=== PATIENT | male | born 1945 | race African-American/Black ===

== ENCOUNTER 2016-11-04 22:42 | Observation (INO) | payer OTHER, MEDICARE ==
[2016-11-05] MEDS ORDERED: ACETAMINOPHEN 325 MG TABLET PO ONE (00:40)
--- NOTE | 2016-11-05 00:40 | ER Document Report ---
ED General <TAMARA ALDANA - Last Filed: 11/05/16 04:25> - General Time seen by provider: 00:35 Mode of Arrival: Ambulatory Information source: Patient TRAVEL OUTSIDE OF THE [place] IN LAST 30 DAYS: No - HPI Onset: Other - see HPI Associated symptoms: Chills, Fever, Headache, Other - dizzy <KEVIN OWEN - Last Filed: 11/11/16 22:27> - General Chief Complaint: High Blood Pressure Stated Complaint: BLOOD PRESSURE ISSUE Notes: Patient is a 71 year old male presenting to the emergency department complaining of high blood pressure. Patient was seen on 10/09/16 for some left tunnel vision. 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 Patient was admitted to the hospital and then transferred to [facility] on 10/11. Patient was found to have hypertension, diabetes mellitus , and hyperlipidemia along with his carotid artery blockage. Patient had an endarterectomy on 11/03/16 at [facility]. Patient's blood pressure shot up to 230 systolic on 11/03/16 after surgery and patient was given medication to bring it down to 70/24. Patient was discharged from [facility] with valsartan for his blood pressure and told to not take the hydrochlorothiazide. Patient was discharged from [facility] earlier on 11/04/16. Patient states he took 2 hydrochlorothiazide to help bring his elevated blood pressure down tonight. Patient also complains of fever, headache, chills, and dizziness. Patient has not taken any medication for his fever. At time of exam patient's blood pressure is 180/75. Patient's PCP is Dr. Lima and Dr. Lima was the patient's admitting physician on 10/09. Patient has no known allergies. (KEVIN OWEN) - Related Data Allergies/Adverse Reactions: No Known Allergies Allergy (Verified 11/05/16 05:11) Home Medications: Current Home Medications Aspirin [Aspirin 81 mg Chewable Tablet] 81 mg PO DAILY 11/05/16 [History] Brimonidine Tartrate/Timolol [Combigan 0.2%-0.5% Eye Drops] 1 drop BTH_EYE BID 11/05/16 [History] Canagliflozin [Invokana] 100 mg PO DAILY 11/05/16 [History] Clopidogrel Bisulfate [Plavix 75 mg Tablet] 75 mg PO DAILY 11/05/16 [History] Glimepiride [Amaryl] 2 mg PO DAILY 11/05/16 [History] Glucosamine/D3/Boswellia Fariha [Osteo Bi-Flex Tablet] 2 tab PO DAILY 11/05/16 [ History] Multivitamin [Daily Multiple Vitamin] 1 tab PO DAILY 11/05/16 [History] Simvastatin 20 mg PO DAILY 11/05/16 [History] Sitagliptin Phos/Metformin HCl [Janumet 50-500 mg Tablet] 1 tab PO DAILY [History] Travoprost (Benzalkonium) [Travatan 0.004% Eye Drop] 1 drop RT_EYE DAILY [History] Valsartan 160 mg PO DAILY 11/05/16 [History] Past Medical History - General Information source: Patient - Social History Smoking Status: Never Smoker Cigarette use (# per day): No Chew tobacco use (# tins/day): No Frequency of alcohol use: None Drug Abuse: None Family History: None - Past Medical History Cardiac Medical History: Reports: Hx Hypercholesterolemia, Hx Hypertension Endocrine Medical History: Reports: Hx Diabetes Mellitus Type 2 GI Medical History: Reports: Hx Gastroesophageal Reflux Disease Musculoskeltal Medical History: Reports Hx Arthritis Psychiatric Medical History: Reports: Hx Depression <KEVIN OWEN - Last Filed: 11/11/16 22:27> Review of Systems - Review of Systems Constitutional: See HPI, Chills, Fever EENT: No symptoms reported Cardiovascular: See HPI, Dizziness Respiratory: No symptoms reported Gastrointestinal: No symptoms reported Genitourinary: No symptoms reported Male Genitourinary: No symptoms reported Musculoskeletal: No symptoms reported Skin: No symptoms reported Hematologic/Lymphatic: No symptoms reported Neurological/Psychological: No symptoms reported -: Yes All other systems reviewed and negative <KEVIN OWEN - Last Filed: 11/11/16 22:27> Physical Exam - Vital signs Interpretation: Hypertensive, Tachycardic - General General appearance: Alert In distress: Mild - HEENT Head: Normocephalic, Atraumatic Eyes: Normal Pupils: PERRL Mucous membranes: Normal Neck: Other - left side of neck has some bandages consistent with recent surgery - Respiratory Respiratory status: No respiratory distress Chest status: Nontender Breath sounds: Normal Chest palpation: Normal - Cardiovascular Rhythm: Regular, Tachycardia Heart sounds: Normal auscultation - Abdominal Inspection: Obese Distension: No distension Bowel sounds: Normal Tenderness: Nontender Organomegaly: No organomegaly - Back Back: Normal, Nontender - Extremities General upper extremity: Normal inspection, Normal ROM, Normal strength General lower extremity: Normal inspection, Normal ROM, Normal strength. No: Edema - Neurological Neuro grossly intact: Yes Cognition: Normal Orientation: AAOx4 Sp Coma Scale Eye Opening: Spontaneous [place] Coma Scale Verbal: Oriented Sp Coma Scale Motor: Obeys Commands [place] Coma Scale Total: 15 Speech: Normal - Psychological Associated symptoms: Normal affect, Normal mood - Skin Skin Temperature: Hot Skin Moisture: Dry <KEVIN OWEN - Last Filed: 11/11/16 22:27> - Vital signs Vitals: Temp Pulse Resp BP Pulse Ox 100.6 F H 102 H 19 171/68 H 96 11/05/16 00:00 11/05/16 00:00 11/05/16 00:00 11/05/16 00:00 11/05/16 00:00 (TAMARA ALDNAA) Course - Laboratory Result Diagrams: 11/05/16 01:39 11/05/16 01:39 - Diagnostic Test Radiology reviewed: Image reviewed, Reports reviewed - Chest x-ray does not show any acute process - EKG Interpretation by Me EKG shows normal: Sinus rhythm, [place], Intervals. abnormal: QRS Complexes - Borderline R-wave progression in the anterior leads, ST-T Waves - Borderline T abnormalities in the inferior leads Rate: Normal - 89 Rhythm: NSR P Waves: LAE - Consults Dr. Lima Time consulted: 03:00 Consulted provider: other - Dr. Lima requests I call the patient's doctors in [place] and transfer him back to [facility]. Dr. Tai Time consulted: 04:15 Consulted provider: other - The hospitalist feels the patient does not warrant transfer to higher level of care and that they do not have beds. He recommends the patient have his fever workup and blood pressure controlled here locally. <TAMARA ALDANA - Last Filed: 11/05/16 04:25> - Laboratory Result Diagrams: 11/06/16 05:58 11/06/16 05:58 <KEVIN OWEN - Last Filed: 11/11/16 22:27> - Re-evaluation Re-evalutation: 11/05/16 03:15 The patient still feels warm at this time, however he states he does feel much better since getting the Tylenol. He has been napping. His blood pressure is now 135 systolic. The patient's chest x-ray is unremarkable, the urine is clean, the white blood cell count is not elevated. I informed the patient and the family that I suspect this will log turner to be a viral illness causing his problems at this time. (TAMARA ALDANA) - Vital Signs Vital signs: Temp Pulse Resp BP Pulse Ox 98.0 F 65 18 152/68 H 100 11/06/16 11:43 11/06/16 11:43 11/06/16 11:43 11/06/16 11:43 11/06/16 11:43 (TAMARA ALDANA) - Laboratory Laboratory results interpreted by me: 11/05/16 11/05/16 11/05/16 01:39 01:39 01:46 RBC 3.62 L Hgb 10.7 L Hct 32.0 L Lymphocytes % 12.6 L Glucose 137 H Creatine Kinase 367 H Urine Glucose (UA) >=500 H Urine Ketones 20 H - Consults Dr. Lima Reason for consultation: 11/05/16 04:23 Dr. Lima was called back and informed of the recommendations by the hospitalist at [facility]. He is agreeable to admitting the patient. He requested he go to telemetry admitted, and be started on antibiotics. (TAMARA ALDANA) Scribe Documentation - Scribe acting as scribe for :: Reyna Written by Scribe:: Kevin Owen (11/05/16 00:30) <KEVIN OWEN - Last Filed: 11/11/16 22:27>
[2016-11-05] MEDS ORDERED: NORMAL SALINE 1000 ML 1,000 ML IV ONE (00:41)
[2016-11-05 02:07] LABS: ALANINE AMINOTRANSFERASE 52 U/L (21-72); ALBUMIN 3.5 g/dL (3.5-5.0); ALKALINE PHOSPHATASE 66 U/L (38-126); ANION GAP 12 (5-19); ASPARTATE AMINO TRANSFERASE 54 U/L (17-59); BILIRUBIN,TOTAL 0.6 mg/dL (0.2-1.3); BLOOD UREA NITROGEN 13 mg/dL (7-20); CARBON DIOXIDE 27 mmol/L (22-30); CHLORIDE 104 mmol/L (98-107); CREATINE KINASE 367 U/L (55-170); CREATININE RESULT 0.97 mg/dL (0.52-1.25); GLUCOSE 137 mg/dL (75-110); MAGNESIUM 1.7 mg/dL (1.6-2.3); POTASSIUM 3.7 mmol/L (3.6-5.0); SODIUM 142.6 mmol/L (137-145); TOTAL PROTEIN 6.7 g/dL (6.3-8.2)
[2016-11-05 02:16] LABS: ABSOLUTE EOSINOPHILS # (AUTO) 0.1 10^3/uL (0.0-0.6); ABSOLUTE LYMPHOCYTES (AUTO) 1.3 10^3/uL (0.5-4.7); ABSOLUTE MONOCYTES (AUTO) 1.2 10^3/uL (0.1-1.4); ABSOLUTE NEUT (AUTO) 7.9 10^3/uL (1.7-8.2); BASOPHILS % (AUTO) 0.5 % (0-2); EOSINOPHILS % (AUTO) 0.9 % (0-6); HEMOGLOBIN 10.7 g/dL (13.5-17.0); HGB HCT DIFFERENCE 0.1; LYMPHOCYTES % (AUTO) 12.6 % (13-45); MEAN CORPUSCULAR HEMOGLOBIN 29.5 pg (27.0-33.4); MEAN CORPUSCULAR HGB CONC 33.3 g/dL (32.0-36.0); MEAN CORPUSCULAR VOLUME 89 fl (80-97); MONOCYTES % (AUTO) 11.2 % (3-13); RED BLOOD COUNT 3.62 10^6/uL (4.35-5.55); RED CELL DISTRIBUTION WIDTH 13.1 % (11.5-14.0); SEGMENTED NEUTROPHILS % (AUTO) 74.8 % (42-78); WHITE BLOOD COUNT 10.5 10^3/uL (4.0-10.5)
[2016-11-05 02:18] LABS: APPEARANCE,URINE CLEAR; BILIRUBIN,URINE NEGATIVE (NEGATIVE); GLUCOSE, URINE >=500 mg/dL (NEGATIVE); KETONES,URINE 20 mg/dL (NEGATIVE); LEUKOCYTE ESTERASE,URINE NEGATIVE (NEGATIVE); NITRITE,URINE NEGATIVE (NEGATIVE); PROTEIN,URINE NEGATIVE (NEGATIVE); URINE SPECIFIC GRAVITY 1.013; UROBILINOGEN,URINE NEGATIVE mg/dL (<2.0)
[2016-11-05 02:21] LABS: CREATINE KINASE MB < 0.22 ng/mL (<4.55); TROPONIN I < 0.012 ng/mL
[2016-11-05] MEDS ORDERED: CEFTRIAXONE 1 GM/D5W RTU 50 ML IV ONE (04:24)
[2016-11-05] MEDS ORDERED: ACETAMINOPHEN 325 MG TABLET PO PRN (06:54)
[2016-11-05] MEDS ORDERED: NORMAL SALINE 1000 ML 1,000 ML IV PRN (06:54)
[2016-11-05] MEDS ORDERED: DEXTROSE 40% GEL 15 GM TUBE PO PRN ×2 (06:57)
[2016-11-05] MEDS ORDERED: GLUCAGON,HUMAN RECOMB 1 MG INJ IM PRN (06:57)
[2016-11-05] MEDS ORDERED: INSULIN LISPRO 100 UNIT/ML 3 ML VIAL SUBCUT PRN (06:57)
[2016-11-05] MEDS ORDERED: DEXTROSE 50%-WATER 25 GM/50 ML DISP.SYRIN IV PRN ×2 (06:57)
--- NOTE | 2016-11-05 07:56 | EKG REPORT ---
SEVERITY:- ABNORMAL ECG - SINUS RHYTHM PROBABLE LEFT ATRIAL ABNORMALITY BORDERLINE R WAVE PROGRESSION, ANTERIOR LEADS BORDERLINE T ABNORMALITIES, INFERIOR LEADS : Confirmed by: Vandana Shah 05-Nov-2016 07:56:13
--- NOTE | 2016-11-05 08:06 | PDOC H&P ---
History of Present Illness Admission Date/PCP: 11/05/16 06:46 HOSSEIN WIGGINS MD Patient complains of: Fever and cough and high blood pressure History of Present Illness: KAY OROURKE is a 71 year old male This 71-year-old male recently admitted on the [facility] for the left and carotid endarterectomy on the 130 17 patient was discharged in a 24- hour patient's came today with a complaint of fever headache complained of for cough congestion last 24 hours his blood pressure was elevated to 180 range according to the patient after the surgery patient's (go up to the 200 range and the patient was given to the some medications to bring it down patient was discharged home from that patient's in the initial workup is negative for any acute stroke and negative workup for any acute infections except possible viral infections. When I saw the patient on the floor patient is doing better denied any headache denied any tingling numbness denied any chest pain no shortness of the breath patient's denied any chills any fever at this moment. Patient's complaining some cough and congestions. Past Medical History Cardiac Medical History: Reports: Hyperlipidema, Hypertension Neurological Medical History: Reports: Ischemic CVA Endocrine Medical History: Reports: Diabetes Mellitus Type 2 GI Medical History: Reports: Gastroesophageal Reflux Disease Musculoskeltal Medical History: Reports: Arthritis Psychiatric Medical History: Reports: Depression Past Surgical History Past Surgical History: Reports: Carotid Endarterectomy Social History Smoking Status: Former Smoker Last Time Smoked: 25 years ago Frequency of Alcohol Use: Social Hx Recreational Drug Use: No Hx Prescription Drug Abuse: No - Advance Directive Resuscitation Status: Full Code Family History Family History: None Parental Family History Reviewed: Yes Children Family History Reviewed: Yes Sibling(s) Family History Reviewed.: Yes Medication/Allergy Home Medications: Brimonidine Tartrate/Timolol [Combigan 0.2%-0.5% Eye Drops] 1 drop BTH_EYE BID 10/09/16 Canagliflozin [Invokana] 100 mg PO DAILY 10/09/16 Fluoxetine HCl [Prozac 20 mg Capsule] 20 mg PO DAILY 10/09/16 Glimepiride 2 mg PO BID 10/09/16 Simvastatin 20 mg PO DAILY 10/09/16 Sitagliptin Phos/Metformin HCl [Janumet 50-500 mg Tablet] 1 tab PO BID 10/09/16 Travoprost [Travatan Z] 1 drop RT_EYE DAILY 10/09/16 Aspirin [Aspirin 81 mg Chewable Tablet] 81 mg PO DAILY 10/10/16 Glucosamine/D3/Boswellia Fariha [Osteo Bi-Flex Tablet] 2 tab PO DAILY 10/10/16 Multivitamin [Multivitamins] 1 cap PO DAILY 10/10/16 Clopidogrel Bisulfate [Plavix 75 mg Tablet] 75 mg PO DAILY #30 tablet 10/14/16 Valsartan [Diovan 160 mg Tablet] 160 mg PO DAILY #30 tablet 10/14/16 Allergies/Adverse Reactions: No Known Allergies Allergy (Verified 11/05/16 05:11) Review of Systems Constitutional: PRESENT: chills, fever(s), headache(s) Eyes: ABSENT: as per HPI, visual disturbances, other Ears: ABSENT: as per HPI, hearing changes, other Nose, Mouth, and Throat: ABSENT: as per HPI, headache(s), mouth pain, sore throat, vertigo, other Cardiovascular: ABSENT: as per HPI, chest pain, dyspnea on exertion, edema, orthropnea, palpitations, other Gastrointestinal: ABSENT: as per HPI, abdominal pain, bloating, coffee ground emesis, constipation, diarrhea, dysphagia, heartburn, hematemesis, hematochezia , melena, nausea, vomiting, other Genitourinary: ABSENT: as per HPI, difficulty urinating, dysuria, hematuria, nocturia, other Musculoskeletal: ABSENT: as per HPI, back pain, deformity, joint swelling, muscle weakness, other Integumentary: ABSENT: as per HPI, diaphoresis, erythema, lesions, pruritus, rash, wounds, other Neurological: ABSENT: as per HPI, abnormal gait, abnormal movements, abnormal speech, confusion, convulsions, dizziness, focal weakness, frequent falls, lack of coordination, memory loss, numbness, paresthesias, restless legs, syncope, tingling, tremor(s), vertigo, weakness, other Psychiatric: ABSENT: as per HPI, anxiety, depression, hallucinations, homidical ideation, suicidal ideation, other Endocrine: ABSENT: as per HPI, cold intolerance, flushing, heat intolerance, menstrual abnormalities, polydipsia, polyphagia, polyuria, other Physical Exam Vital Signs: Temp Pulse Resp BP Pulse Ox 98.3 F 81 18 167/71 H 97 11/05/16 06:23 11/05/16 06:42 11/05/16 06:23 11/05/16 06:23 11/05/16 06:23 General appearance: PRESENT: no acute distress Head exam: PRESENT: normocephalic Eye exam: PRESENT: PERRLA Mouth exam: PRESENT: neck supple Neck exam: PRESENT: other Additional comments: On the left side status post surgery on the incision is clean dry and no sign of any redness Respiratory exam: PRESENT: clear to auscultation stanley Cardiovascular exam: PRESENT: +S1, +S2 GI/Abdominal exam: PRESENT: normal bowel sounds, soft. ABSENT: tenderness Extremities exam: ABSENT: pedal edema Musculoskeletal exam: PRESENT: ambulatory Neurological exam: PRESENT: alert, awake, oriented to person, oriented to time, oriented to situation, reflexes normal, CN II-XII grossly intact, normal gait Psychiatric exam: PRESENT: normal mood Skin exam: PRESENT: normal color Results Impressions: Chest X-Ray 11/05/16 00:39 IMPRESSION: NO ACUTE RADIOGRAPHIC FINDING IN THE CHEST. Assessment & Plan - Diagnosis (1) Fever Qualifiers: Fever type: unspecified Qualified Code(s): R50.9 - Fever, unspecified Is this a current diagnosis for this admission?: YesPlan: As a post of fever but no sign of any infections on the surgical site most likely a viral versus bronchitis will get the all the blood culture urine culture and start the empirical antibiotic and continues to monitor the patient' s. The ER physician discussed with the [facility] suggestible needs to transfer the patient at this point. (2) Bronchitis Is this a current diagnosis for this admission?: YesPlan: Start the patient on the antibiotic and respiratory treatment (3) Carotid stenosis Qualifiers: Laterality: left Qualified Code(s): I65.22 - Occlusion and stenosis of left carotid artery Is this a current diagnosis for this admission?: YesPlan: Status post surgery the insistence site looks clean and dry and no sign of any infections (4) Hyperlipidemia Qualifiers: Hyperlipidemia type: unspecified Qualified Code(s): E78.5 - Hyperlipidemia, unspecified Is this a current diagnosis for this admission?: YesPlan: continue the current medication (5) Hypertension Qualifiers: Hypertension type: essential hypertension Qualified Code(s): I10 - Essential (primary) hypertension (6) Type 2 diabetes mellitus Qualifiers: Diabetes mellitus complication status: with unspecified complications Is this a current diagnosis for this admission?: YesPlan: Continues sliding scale and current medications - Time Time Spent: 50 to 70 Minutes Medications reviewed and adjusted accordingly: Yes Anticipated discharge: Home - Inpatient Certification Medical Necessity: Significant Comorbidiites Make Outpatient Treatment Too Risky , Need for IV Antibiotics - Plan Summary Plan Summary: At the all the blood cultures urine cultures start the IV antibiotics and continues to monitor the patient at this point adjust the blood pressure medications
[2016-11-05] MEDS ORDERED: VALSARTAN 160 MG TABLET PO ONE (10:30)
[2016-11-05] MEDS ORDERED: SITAGLIPTIN PHOSPHATE 50 MG TABLET PO ONE (11:30)
[2016-11-05] MEDS ORDERED: METFORMIN HCL 500 MG TABLET PO ONE (11:30)
[2016-11-05] MEDS ORDERED: CLOPIDOGREL BISULFATE 75 MG TABLET PO ONE (11:30)
[2016-11-05] MEDS ORDERED: GLIMEPIRIDE 1 MG TABLET PO ONE (11:30)
[2016-11-05] MEDS ORDERED: ASPIRIN 81 MG TABLET, CHEWABLE PO ONE (11:30)
[2016-11-05] MEDS ORDERED: MULTIVITAMIN TABLET PO ONE (11:30)
[2016-11-05] MEDS: DOCUSATE SODIUM 100 MG CAPSULE PO SCH (12:03)
[2016-11-05] MEDS: ENOXAPARIN SODIUM INJ 40 MG/0.4 ML DISP.SYRIN SUBCUT SCH (12:06)
[2016-11-05] MEDS: CEFEPIME 1 GM/D5W RTU 50 ML IV SCH ×2 (12:15→22:28)
[2016-11-06 06:39] LABS: ABSOLUTE BASOPHILS # (AUTO) 0.1 10^3/uL (0.0-0.2); ABSOLUTE EOSINOPHILS # (AUTO) 0.3 10^3/uL (0.0-0.6); ABSOLUTE LYMPHOCYTES (AUTO) 1.5 10^3/uL (0.5-4.7); ABSOLUTE MONOCYTES (AUTO) 0.9 10^3/uL (0.1-1.4); BASOPHILS % (AUTO) 0.8 % (0-2); EOSINOPHILS % (AUTO) 4.6 % (0-6); HEMATOCRIT 30.9 % (37.9-51.0); HEMOGLOBIN 10.4 g/dL (13.5-17.0); HGB HCT DIFFERENCE 0.3; LYMPHOCYTES % (AUTO) 21.9 % (13-45); MEAN CORPUSCULAR HGB CONC 33.6 g/dL (32.0-36.0); MEAN CORPUSCULAR VOLUME 89 fl (80-97); MONOCYTES % (AUTO) 13.1 % (3-13); RED BLOOD COUNT 3.46 10^6/uL (4.35-5.55); SEGMENTED NEUTROPHILS % (AUTO) 59.6 % (42-78); WHITE BLOOD COUNT 6.7 10^3/uL (4.0-10.5)
[2016-11-06 07:04] LABS: ANION GAP 7 (5-19); BLOOD UREA NITROGEN 12 mg/dL (7-20); CALCIUM 8.9 mg/dL (8.4-10.2); CARBON DIOXIDE 29 mmol/L (22-30); CHLORIDE 106 mmol/L (98-107); CREATININE RESULT 0.85 mg/dL (0.52-1.25); GLUCOSE 117 mg/dL (75-110); POTASSIUM 3.8 mmol/L (3.6-5.0); SODIUM 142.4 mmol/L (137-145)
[2016-11-06 07:39] VITALS: BP 152/68
[2016-11-06] MEDS ORDERED: SITAGLIPTIN PHOSPHATE 50 MG TABLET PO SCH (10:00)
[2016-11-06] MEDS ORDERED: (PENDING PHARMACY ID) (Sitagliptin Phos/Metformin Hcl [Janumet 50-500 Mg Tablet] 1 TAB) PO SCH (10:00)
[2016-11-06] MEDS ORDERED: D3 PO SCH (10:00)
[2016-11-06] MEDS ORDERED: (PENDING PHARMACY ID) (Canagliflozin [Invokana] 100 MG) PO SCH (10:00)
[2016-11-06] MEDS ORDERED: MULTIVITAMIN TABLET PO SCH (10:00)
[2016-11-06] MEDS ORDERED: GLIMEPIRIDE 1 MG TABLET PO SCH (10:00)
[2016-11-06] MEDS ORDERED: VALSARTAN 160 MG TABLET PO SCH (10:00)
[2016-11-06] MEDS ORDERED: METFORMIN HCL 500 MG TABLET PO SCH (10:00)
[2016-11-06] MEDS ORDERED: (PENDING PHARMACY ID) (Travoprost (Benzalkonium) [Travatan 0.004% Eye Drop] 1 DROP) RT_EYE SCH (10:00)
[2016-11-06] MEDS ORDERED: GLUCOSAMINE PO SCH (10:00)
[2016-11-06] MEDS ORDERED: (PENDING PHARMACY ID) (Simvastatin [Simvastatin] 20 MG) PO SCH (10:00)
[2016-11-06] MEDS ORDERED: SIMVASTATIN 10 MG TABLET PO SCH (10:00)
[2016-11-06] MEDS ORDERED: ASPIRIN 81 MG TABLET, CHEWABLE PO SCH (10:00)
[2016-11-06] MEDS ORDERED: BOSWELLIA SERRA PO SCH (10:00)
[2016-11-06] MEDS ORDERED: CLOPIDOGREL BISULFATE 75 MG TABLET PO SCH (10:00)
--- NOTE | 2016-11-06 10:13 | DISCHARGE SUMMARY E ---
Discharge Summary NAME: KAY OROURKE : 1945 AGE: 71Y ADMITTED: 11/05/2016 DISCHARGED: 11/06/2016 DISCHARGE DIAGNOSES: 1. Fever, rule out sepsis. 2. Status post left endarterectomy surgery postop. 3. Ischemic cerebrovascular accident. 4. Bronchitis. 5. Hyperlipidemia. 6. Hypertension. 7. Type 2 diabetes mellitus. DISCHARGE DIAGNOSES: 1. Fever most likely a viral. All cultures negative. 2. Type 2 diabetes mellitus. 3. Carotid stenosis, status post endarterectomy. Currently following at [place] for that. 4. Hypertension. 5. Hyperlipidemia. 6. 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 MEDICATIONS ON DISCHARGE: 1. Eyedrops. 2. Invokana 100 mg daily. 3. Tylenol p.r.n. 4. Diovan 160 mg p.o. daily, discussed with the patient if the blood pressure is running about 116, increase the Diovan to twice a day. 5. Glucophage 500 mg p.o. daily. 6. Januvia 50 mg p.o. daily. 7. Zocor 20 mg p.o. daily. 8. Aspirin 81 mg daily. 9. Plavix 75 mg p.o. daily. 10. Amaryl 2 mg p.o. daily. Patient is not taking the Invokana. Patient is currently only on Januvia. FOLLOWUP: Patient needs to follow in office in 1 week. PHYSICAL EXAMINATION: VITAL SIGNS: Blood pressure was 152/68, temperature is 98.8, pulse was 73, respirations were 18, O2 sat 100% on room air. GENERAL: The patient is alert, awake, oriented X3. HEAD/NECK: Normocephalic. PERRLA. LUNGS: No wheezing. No rales. No rhonchi. HEART: S1, S2 are present. ABDOMEN: Soft. Bowel sounds present. EXTREMITIES: No edema. On the left, *------* dressing is clean and dry. NEUROLOGIC: No focal weakness. LABORATORY: WBC is 6.7, hemoglobin is 10.4, platelets are 208. Sodium is 142, potassium is 3.8, BUN 12, creatinine is 0.85. Microbiology: Blood cultures no growth. HOSPITAL COURSE: This is a 71-year-old who just recently had left endarterectomy that was done in [place] on Wednesday. Patient was discharged home and came the second day with complaint of some fever, cough. At this point fever was 100.1 and patient was admitted into the hospital for further evaluation and treatment. Patient was started on IV antibiotics. The patient's blood culture was no growth. Patient, otherwise, remained afebrile and the patient is discharged home with Keflex 500 mg t.i.d. and follow as an outpatient. Discussed with the patient if there is increasing fever, any chest pain, any shortness of breath, any tingling, any numbness, come to the emergency department. Patient's wound is still clear. Patient follow outpatient with the surgeons and the patient is discharged home in stable condition and follow as an outpatient. More than 30 minutes spent examining the patient and reviewing the records. DICTATING PHYSICIAN: HOSSEIN WIGGINS M.D. [id number] PHY#: [id number] ID: [id number] JOB#: [id number] ACCT: [id number] cc:HOSSEIN WIGGINS M.D. >
[2016-11-06] MEDS: DOCUSATE SODIUM 100 MG CAPSULE PO SCH (11:24)
[2016-11-06] MEDS: CEFEPIME 1 GM/D5W RTU 50 ML IV SCH (11:26)
[2016-11-06] MEDS: ENOXAPARIN SODIUM INJ 40 MG/0.4 ML DISP.SYRIN SUBCUT SCH (11:27)
== END 2016-11-06 12:15 | disposition home or self-care (01) ==
LOC: ER 22:42 → UNDOADMIN 11-05 04:34 → EH 11-05 04:34 → 4W 11-05 06:19 → EH 11-05 06:19 → UNDOADMIN 11-05 06:46 → EH 11-05 06:46 → 4W 11-05 06:46 → INTOOBSV 11-05 06:55 → EH 11-05 06:55 → 4W 11-05 06:55 → OBSVTOIN 11-05 12:00 → INTOOBSV 11-05 12:00
PROVIDERS: ADMIT Family Medicine; ATTEND Family Medicine
DX: R50.9 Fever, unspecified (principal); J40 Bronchitis, not specified as acute or chronic; I10 Essential (primary) hypertension; Z98.890 Other specified postprocedural states; E11.9 Type 2 diabetes mellitus without complications; Z79.84 Long term (current) use of oral hypoglycemic drugs; Z79.82 Long term (current) use of aspirin; Z86.73 Personal history of transient ischemic attack (TIA), and cerebral infarction without residual deficits; E78.5 Hyperlipidemia, unspecified; K21.9 Gastro-esophageal reflux disease without esophagitis; M19.90 Unspecified osteoarthritis, unspecified site; F32.9 Major depressive disorder, single episode, unspecified; Z87.891 Personal history of nicotine dependence
CPT/HCPCS: 93005; 99284; 36415 ×2; 87040; 87086; 82553; 82962 ×2; 82550; 83605; 83735; 85025 ×2; 80048; 80053; 81001; 84484; 71010; 93010; G0378 ×2; J1650 ×2; J0696; J0692 ×2

== ENCOUNTER 2018-01-10 16:19 | Emergency (ER) | payer MEDICARE, OTHER ==
[2018-01-10 16:32] VITALS: BP 122/50
== END 2018-01-10 17:30 | disposition left against medical advice (07) ==
LOC: ER 16:19
DX: Z53.21 Procedure and treatment not carried out due to patient leaving prior to being seen by health care provider (principal); R42 Dizziness and giddiness

== ENCOUNTER → 2018-05-30 | Outpatient (CLI) | payer MEDICARE, OTHER ==
[2018-05-30 10:57] LABS: ABSOLUTE BASOPHILS # (AUTO) 0.1 10^3/uL (0.0-0.2); ABSOLUTE EOSINOPHILS # (AUTO) 0.2 10^3/uL (0.0-0.6); ABSOLUTE LYMPHOCYTES (AUTO) 1.8 10^3/uL (0.5-4.7); ABSOLUTE MONOCYTES (AUTO) 0.6 10^3/uL (0.1-1.4); ABSOLUTE NEUT (AUTO) 3.2 10^3/uL (1.7-8.2); BASOPHILS % (AUTO) 0.9 % (0-2); EOSINOPHILS % (AUTO) 3.8 % (0-6); HEMATOCRIT 37.8 % (37.9-51.0); HEMOGLOBIN 12.9 g/dL (13.5-17.0); LYMPHOCYTES % (AUTO) 31.2 % (13-45); MEAN CORPUSCULAR HGB CONC 34.1 g/dL (32.0-36.0); MEAN CORPUSCULAR VOLUME 88 fl (80-97); MONOCYTES % (AUTO) 9.5 % (3-13); PLATELET COUNT 239 10^3/uL (150-450); RED BLOOD COUNT 4.29 10^6/uL (4.35-5.55); RED CELL DISTRIBUTION WIDTH 12.8 % (11.5-14.0); SEGMENTED NEUTROPHILS % (AUTO) 54.6 % (42-78); TOTAL CELLS COUNTED % (AUTO) 100 %; WHITE BLOOD COUNT 5.8 10^3/uL (4.0-10.5)
[2018-05-30 11:01] LABS: APPEARANCE,URINE CLEAR; BILIRUBIN,URINE NEGATIVE (NEGATIVE); COLOR,URINE YELLOW; GLUCOSE, URINE NEGATIVE (NEGATIVE); KETONES,URINE NEGATIVE (NEGATIVE); LEUKOCYTE ESTERASE,URINE NEGATIVE (NEGATIVE); NITRITE,URINE NEGATIVE (NEGATIVE); PROTEIN,URINE NEGATIVE (NEGATIVE); URINE SPECIFIC GRAVITY 1.017; UROBILINOGEN,URINE NEGATIVE mg/dL (<2.0)
[2018-05-30 11:22] LABS: ANION GAP 11 (5-19); BLOOD UREA NITROGEN 14 mg/dL (7-20); CALCIUM 9.8 mg/dL (8.4-10.2); CARBON DIOXIDE 29 mmol/L (22-30); CHLORIDE 103 mmol/L (98-107); GLUCOSE 124 mg/dL (75-110); POTASSIUM 4.8 mmol/L (3.6-5.0); SODIUM 143.1 mmol/L (137-145)
--- NOTE | 2018-05-30 12:39 | RADIOLOGY REPORT (SQ) ---
EXAM DESCRIPTION: CHEST PA/LATERAL COMPLETED DATE/TIME: 05/30/2018 9:54 am REASON FOR STUDY: PRE-OP COMPARISON: 11/05/2016. EXAM PARAMETERS: NUMBER OF VIEWS: two views TECHNIQUE: Digital Frontal and Lateral radiographic views of the chest acquired. RADIATION DOSE: NA LIMITATIONS: none FINDINGS: LUNGS AND PLEURA: No opacities, masses or pneumothorax. No pleural effusion. MEDIASTINUM AND HILAR STRUCTURES: No masses or contour abnormalities. HEART AND VASCULAR STRUCTURES: Heart normal size. No evidence for failure. BONES: No acute findings. Degenerative changes in the spine. HARDWARE: None in the chest. OTHER: No other significant finding. IMPRESSION: NO SIGNIFICANT RADIOGRAPHIC FINDING IN THE CHEST. TECHNICAL DOCUMENTATION: JOB ID: [id number] [employer]- All Rights Reserved Reading location - IP/workstation name: [email or web address]
--- NOTE | 2018-05-30 17:55 | EKG REPORT ---
SEVERITY:- BORDERLINE ECG - SINUS RHYTHM PROBABLE LEFT ATRIAL ABNORMALITY : Confirmed by: Vandana Shah 30-May-2018 17:54:28
== END ==
LOC: OD 09:08
PROVIDERS: ATTEND Orthopaedic Surgery
DX: Z01.810 Encounter for preprocedural cardiovascular examination (principal); Z01.812 Encounter for preprocedural laboratory examination; Z01.818 Encounter for other preprocedural examination; E11.9 Type 2 diabetes mellitus without complications
CPT/HCPCS: 36415; 71046; 80048; 81001; 83036; 85025; 93005; 93010

== ENCOUNTER 2018-06-28 07:32 | Day surgery (SDC) | payer MEDICARE, OTHER ==
--- NOTE | 2018-06-24 14:27 | Physician Advisory Note ---
Physician Advisor ProgressNote .: Pursuant to the plan for Zen Wallace, I have reviewed the medical record for this patient. Physician Advisor Statement: Please consider documenting, if you agree: 1. For "Surgical necessity": all specific pre-op x-ray/scan findings present that CMS looks for: subchondral cysts, subchondral sclerosis, periarticular osteophytes, joint space narrowing, AVN/osteonecrosis.... 2. "chronic diastolic CHF" * (see below) 3. in H&P (or addendum to H&P, or first note) that A. I FULLY EXPECT pt to require at least 2 nights of hospital care & monitoring post-op at the time of the Inpatient order BECAUSE - AND B. If pt unexpectedly recovers so quickly that d/c is indeed safe after 1 MN in hospital after all, then Document in DCSummary that I WAS VERY SURPRISED that pt improved so quickly, I didnt expect pt to have any chance of d/c this soon, . - unless you expect pt to go home on POD1, in which case pt should have surgery as outpt.... Potential concerns to attending leading to expectation of Inpt/2MNs in this case : DM-2, poor vision (glaucoma Rt, legally blind Lt - but w/this, how is he able to play golf?), Chronic diastolic CHF (whether or not pt is aware he has it) - *(pt has grade 2 diastolic dysfunction on ECHO; if pt has never had an acute exacerb of CHF before, this is now classified as "chronic diastolic CHF, stage B") regular Etoh use of reported 14 drinks/wk 72 yo, lives alone, has friends/neighbors willing to check on him, but that isn' t a 24/7 situation. Takes Plavix & ASA chronic low back pain Does not typically take any opioids, so more likely to have stronger response to "usual" doses given jagruti-op. PROMIS score pre-op is 35, unable to walk >1mile or bend/kneel/stoop, much difficulty w/1 flight stairs, somewhat limited w/vigorous activities due to knee OA. Thanks! CK
[2018-06-27 07:38] LABS: INTERNATIONAL RATION (INR) 0.89; PROTHROMBIN TIME 12.5 SEC (11.4-15.4)
[2018-06-27 07:39] LABS: PARTIAL THROMBOPLASTIN TIME 30.4 SEC (23.5-35.8)
[2018-06-27] MEDS: BUPIVACAINE INJ/PF LIPOSOME/PF 266 MG/20 ML SDV INJ PRN ×2 (07:43→11:07)
[2018-06-27] MEDS: THROMBIN (BOVINE) TOPICAL 20000 UNIT VIAL ONE ×2 (07:47→11:07)
[2018-06-27] MEDS: THROMBIN (BOVINE) 5000 UNIT EPITAXIS KIT ONE ×2 (07:48→11:08)
[2018-06-27] MEDS: LOSARTAN POTASSIUM 50 MG TABLET PO ONE ×2 (08:24→13:30)
--- NOTE | 2018-06-27 11:42 | Operative Report ---
Operative Report DATE OF SURGERY: 06/27/18 PREOPERATIVE DIAGNOSIS: Left knee arthritis OPERATION: Left knee arthroplasty SURGEON: JAZZMINE SLOAN ANESTHESIA: Spinal TISSUE REMOVED OR ALTERED: Bone to pathology ESTIMATED BLOOD LOSS: 100 PROCEDURE: Implants used: Femur: Melvin triathlon size 8 CR femur Tibia: 7 tibia Tibial liner: 9 mm CS insert Patella: 40 mm oval patella Procedure with the patient supine on the operating table the left the limb is prepped and draped in a sterile fashion. The limb was elevated for exsanguination and the tourniquet inflated to 280 torr. A standard midline median parapatellar approach the knee is taken. Access is gained to the femoral canal through the intercondylar notch. Intramedullary alignment instrumentation used to resect 10 mm of distal femur in 5 of valgus. Sizing guide indicated a size 8 femur. Appropriate cutting jig is then used to fashion anterior posterior and chamfer cuts. A trial reduction femurs performed and this is judged to be adequate. Attention was next turned to the tibia. Using an extra medullary alignment system 9 millimeters was resected off the lateral tibial plateau. This is sized to a size 7 tibia. A trial reduction was now performed with a 8 femur and a 7 tibia using a 9 millimeters spacer. It is full extension and central patellofemoral tracking. The articular surface the patella was next resected using an oscillating saw. All trial implants were removed. Polymethylmethacrylate is mixed and used to cement the above implants in place. On adequate curing the cement excess cement was removed the tourniquet was deflated hemostasis obtained the wound is then closed in layers using interrupted Vicryl followed by yeny. A sterile compressive dressing was applied and the patient returned to recovery room in satisfactory condition.
--- NOTE | 2018-06-27 12:53 | RADIOLOGY REPORT (SQ) ---
EXAM DESCRIPTION: KNEE LEFT 2 VIEWS COMPLETED DATE/TIME: 06/27/2018 12:31 pm REASON FOR STUDY: Post OP -Long Cassette in PACU M25.562 PAIN IN LEFT KNEE COMPARISON: None. NUMBER OF VIEWS: Two view(s). TECHNIQUE: Digital radiographic images of the left knee post-procedure. LIMITATIONS: None. FINDINGS: BONES: No worrisome or unexpected findings post-procedure. DEVICE: Total left knee arthroplasty. SOFT TISSUES: No worrisome findings. Expected postoperative soft tissue changes. IMPRESSION: SATISFACTORY POSTOPERATIVE LEFT KNEE. TECHNICAL DOCUMENTATION: JOB ID: [id number] [employer]- All Rights Reserved Reading location - IP/workstation name: [email or web address]
[2018-06-27] MEDS: MORPHINE SULFATE 10 MG/ML INJ IV PRN ×2 (16:27→19:29)
[2018-06-27] MEDS: SENNOSIDES/DOCUSATE 8.6-50 MG 1 EACH TABLET PO SCH (17:35)
[2018-06-27] MEDS: PREGABALIN 75 MG CAPSULE PO SCH (17:36)
[2018-06-27] MEDS: METFORMIN HCL 500 MG TABLET PO SCH (17:37)
[2018-06-27] MEDS: GLIMEPIRIDE 1 MG TABLET PO SCH (17:37)
[2018-06-27] MEDS: SITAGLIPTIN PHOSPHATE 50 MG TABLET PO SCH (17:37)
[2018-06-27] MEDS: TIMOLOL MALEATE 0.5% OPH SOLN 5 ML OU SCH (17:39)
[2018-06-27] MEDS: IBUPROFEN 800 MG in DEXTROSE 5%-WATER 250 ML IV SCH (18:06)
[2018-06-27] MEDS: BRIMONIDINE TARTRATE 0.2% OPH SOLN 5 ML OU SCH (22:54)
[2018-06-27] MEDS: OXYCODONE HCL SR 10 MG TABLET PO SCH (22:55)
[2018-06-28] MEDS: IBUPROFEN 800 MG in DEXTROSE 5%-WATER 250 ML IV SCH ×2 (02:35→10:01)
--- NOTE | 2018-06-28 06:54 | PDOC DISCHARGE SUMMARY ---
General - Admit/Disc Date/PCP Admission Date/Primary Care Provider: 06/27/18 06:27 HOSSEIN WIGGINS MD Discharge Date: 06/28/18 - Discharge Diagnosis (1) Arthritis of left knee Is this a current diagnosis for this admission?: Yes - Additional Information Resuscitation Status: Full Code Discharge Diet: As Tolerated, Regular Discharge Activity: Balance Activity w/Rest, No Driving Home Medications: Aspirin [Aspirin 81 mg Chewable Tablet] 81 mg PO DAILY 11/05/16 Brimonidine Tartrate/Timolol [Combigan 0.2%-0.5% Eye Drops] 1 drop BTH_EYE BID 11/05/16 Clopidogrel Bisulfate [Plavix 75 mg Tablet] 75 mg PO DAILY 11/05/16 Glucosamine/D3/Boswellia Fariha [Osteo Bi-Flex Tablet] 2 tab PO DAILY 11/05/16 Multivitamin [Daily Multiple Vitamin] 1 tab PO DAILY 11/05/16 Simvastatin 20 mg PO DAILY 11/05/16 Bimatoprost [Lumigan 0.01% Oph Soln 2.5 ml/Bottle] 2 drop OU QHS 06/01/18 Glimepiride [Amaryl 1 mg Tablet] 2 mg PO BID 06/01/18 Sitagliptin Phos/Metformin HCl [Janumet 50-1,000 mg Tablet] 50 - 1,000 mg PO BID 06/01/18 Losartan Potassium 50 mg PO DAILY 06/16/18 Sitagliptin Phos/Metformin HCl [Janumet 50-1,000 mg Tablet] 06/27/18 Oxycodone HCl [Oxy-Ir 5 mg Tablet] 5 mg PO Q6HP PRN tablet 06/28/18 Sitagliptin Phosphate [Januvia 50 mg Tablet] 50 mg PO BIDBS tablet 06/28/18 Timolol Maleate [Timoptic 0.5% Oph Soln 5 ml] 1 drop OU BID bottle 06/28/18 History of Present Illness History of Present Illness: KAY OROURKE is a 72 year old male Patient is a 72-year-old black male with progressive left knee pain and functional disability secondary osteoarthritis. Patient is admitted for elective left knee arthroplasty. Hospital Course Hospital Course: Patient is admitted through the operating where he undergoes unconjugated left knee arthroplasty. Is returned to floor in satisfactory condition. Is up with physical therapy and ambulates 200 feet on the day of surgery. He has minimal pain. Dressing is changed on postop day 2. Wound is clean dry and intact. Physical Exam Vital Signs: Temp Pulse Resp BP Pulse Ox 37.2 C 77 16 134/55 H 97 06/28/18 00:32 06/28/18 00:32 06/28/18 00:32 06/28/18 00:32 06/28/18 00:32 Intake & Output 06/26/18 06/27/18 06/28/18 06:59 06:59 06:59 Intake Total 4590 Output Total 2275 Balance 2315 Weight 93.5 kg General appearance: PRESENT: no acute distress Head exam: PRESENT: normocephalic Respiratory exam: PRESENT: unlabored Cardiovascular exam: PRESENT: RRR Pulses: PRESENT: +1 pedal pulses bilateral Vascular exam: PRESENT: normal capillary refill GI/Abdominal exam: PRESENT: soft Rectal exam: PRESENT: deferred Extremities exam: PRESENT: other - Left lower extremity dressing is clean dry and intact. Minimal pedal edema. Minor tenderness to palpation. Distal neurovascular examination is intact. Neurological exam: PRESENT: alert, awake, oriented to person, oriented to place , oriented to time, oriented to situation. ABSENT: motor sensory deficit Psychiatric exam: PRESENT: appropriate affect, normal mood. ABSENT: homicidal ideation, suicidal ideation Skin exam: PRESENT: dry, intact, warm. ABSENT: cyanosis, rash Results Impressions: Knee X-Ray 06/27/18 11:46 IMPRESSION: SATISFACTORY POSTOPERATIVE LEFT KNEE. Status: Imported from [facility] Qual[facility] - * PATIENT BEING DISCHARGED WITH ANY OF THE FOLLOWING DIAGNOSIS: No VTE patient discharged on overlapping Therapy?: Yes Plan Discharge Plan: Patient discharged home with home health nursing, home health physical therapy, wheeled walker, bedside commode. Follow-up Dr. Londono and [facility] for surgery in 2 weeks for staple removal. Time Spent: Less than 30 Minutes
[~2018-06-28 07:32] MED LIST: ACETAMINOPHEN 1,000 MG/100 ML RTUPB IV ONE; ACETAMINOPHEN 325 MG TABLET PO PRN; BIMATOPROST 0.01% OPH SOLN 2.5 ML/BOTTLE OU SCH; BUPIVACAINE HCL/DEX-WATER/PF 15 MG/2 ML AMPULE ONE; BUPIVACAINE INJ/PF LIPOSOME/PF 266 MG/20 ML SDV ONE; CEFAZOLIN INJ 1 GM VIAL IV PRN; DEXTROSE 40% GEL 15 GM TUBE PO PRN; DEXTROSE 40% GEL 15 GM TUBE X 2 PO PRN; DEXTROSE 50%-WATER SYRINGE 12.5 GM/25 ML DOSE IV PRN; DEXTROSE 50%-WATER SYRINGE 25 GM/50 ML DOSE IV PRN; DIPHENHYDRAMINE HCL 50 MG/ML VIAL IV PRN; EPHEDRINE SULFATE INJ 50 MG/1 ML AMPULE ONE; EPINEPHRINE INJ/PF 1 MG/1 ML AMPULE ONE; FENTANYL CITRATE INJ/PF 100 MCG/2 ML AMPUL IV PRN; FENTANYL CITRATE INJ/PF 100 MCG/2 ML AMPUL ONE; GLUCAGON,HUMAN RECOMB 1 MG INJ IM PRN; IBUPROFEN 800 MG in DEXTROSE 5%-WATER 250 ML IV PRN; IBUPROFEN 800 MG in NORMAL SALINE 250 ML IV PRN; INSULIN LISPRO 100 UNIT/ML 3 ML VIAL SUBCUT PRN; LACTATED RINGERS 1000 ML IV PRN; LANSOPRAZOLE 15 MG TAB.RAP.DR PO PRN; LANSOPRAZOLE 30 MG TAB.RAP.DR PO SCH; LIDOCAINE 0.5% INJ-PF (5 MG/ML) 50 ML SDV SUBCUT PRN; LIDOCAINE 2% INJ-PF (20 MG/ML) 10 ML AMPUL ONE; MAG HYDROX/AL HYDROX/SIMETH SUSP 30 ML UDCUP PO PRN; MIDAZOLAM 2 MG/2 ML INJ ONE; MORPHINE SULFATE 10 MG/ML INJ IM PRN; MORPHINE SULFATE 10 MG/ML INJ IV PRN; ONDANSETRON 4 MG TAB.RAPDIS PO PRN; ONDANSETRON HCL INJ/PF 4 MG/2 ML SDV IV PRN; ONDANSETRON HCL INJ/PF 4 MG/2 ML SDV ONE; OXYCODONE HCL IR 5 MG TABLET PO PRN; OXYCODONE HCL SR 10 MG TABLET PO PRN; PHENYLEPHRINE HCL INJ/PF 10 MG/1 ML SDV ONE; PROMETHAZINE HCL INJ 25 MG/1 ML VIAL IV PRN; PROPOFOL INJ 200 MG/20 ML VIAL IV ONE; RINGERS SOLUTION,LACTATED 1,000 ML IV PRN; SIMVASTATIN 10 MG TABLET PO SCH; TRANEXAMIC ACID INJ/PF 1,000 MG/10 ML SDV IV ONE; VANCOMYCIN HCL 1,000 MG in DEXTROSE 5%-WATER 250 ML IV ONE; VANCOMYCIN HCL 1,000 MG in DEXTROSE 5%-WATER 250 ML IV PRN; ZOLPIDEM TARTRATE 5 MG TABLET PO PRN
[2018-06-28] MEDS: METFORMIN HCL 500 MG TABLET PO SCH (07:38)
[2018-06-28] MEDS: SITAGLIPTIN PHOSPHATE 50 MG TABLET PO SCH (07:38)
[2018-06-28 08:48] LABS: HEMATOCRIT 31.9 % (37.9-51.0); MEAN CORPUSCULAR HEMOGLOBIN 30.2 pg (27.0-33.4); MEAN CORPUSCULAR HGB CONC 34.5 g/dL (32.0-36.0); MEAN CORPUSCULAR VOLUME 88 fl (80-97); PLATELET COUNT 181 10^3/uL (150-450); RED BLOOD COUNT 3.64 10^6/uL (4.35-5.55); RED CELL DISTRIBUTION WIDTH 13.2 % (11.5-14.0); WHITE BLOOD COUNT 8.6 10^3/uL (4.0-10.5)
[2018-06-28 08:55] LABS: ANION GAP 13 (5-19); BLOOD UREA NITROGEN 22 mg/dL (7-20); CALCIUM 8.6 mg/dL (8.4-10.2); CARBON DIOXIDE 23 mmol/L (22-30); CHLORIDE 102 mmol/L (98-107); GLUCOSE 133 mg/dL (75-110); POTASSIUM 4.2 mmol/L (3.6-5.0); SODIUM 137.6 mmol/L (137-145)
[2018-06-28] MEDS: BRIMONIDINE TARTRATE 0.2% OPH SOLN 5 ML OU SCH (09:57)
[2018-06-28] MEDS: GLIMEPIRIDE 1 MG TABLET PO SCH (09:57)
[2018-06-28] MEDS: PREGABALIN 75 MG CAPSULE PO SCH (09:58)
[2018-06-28] MEDS: OXYCODONE HCL SR 10 MG TABLET PO SCH (09:59)
[2018-06-28] MEDS ORDERED: CLOPIDOGREL BISULFATE 75 MG TABLET PO SCH (10:00)
[2018-06-28] MEDS ORDERED: LOSARTAN POTASSIUM 50 MG TABLET PO SCH (10:00)
[2018-06-28] MEDS ORDERED: ASPIRIN 81 MG TABLET, CHEWABLE PO SCH (10:00)
[2018-06-28] MEDS ORDERED: PRENATAL VITAMIN W DHA CAPSULE PO SCH (10:00)
[2018-06-28] MEDS ORDERED: (PENDING PHARMACY ID) (Simvastatin [Simvastatin] 20 MG) PO SCH (10:00)
[2018-06-28] MEDS: SENNOSIDES/DOCUSATE 8.6-50 MG 1 EACH TABLET PO SCH (10:05)
[2018-06-28] MEDS: TIMOLOL MALEATE 0.5% OPH SOLN 5 ML OU SCH (10:06)
[2018-06-28 15:13] VITALS: BP 172/65
== END 2018-06-28 15:20 | disposition home health service (06) ==
LOC: 4S 07:32 → OROUT 07:32 → UNDODISOB 15:20
PROVIDERS: ATTEND Orthopaedic Surgery
DX: M17.12 Unilateral primary osteoarthritis, left knee (principal); E11.9 Type 2 diabetes mellitus without complications; E78.00 Pure hypercholesterolemia, unspecified; I10 Essential (primary) hypertension; H40.9 Unspecified glaucoma; M54.5 Low back pain; Z79.899 Other long term (current) drug therapy; Z82.49 Family history of ischemic heart disease and other diseases of the circulatory system; Z87.891 Personal history of nicotine dependence; Z01.818 Encounter for other preprocedural examination; Z79.82 Long term (current) use of aspirin; Z79.84 Long term (current) use of oral hypoglycemic drugs
CPT/HCPCS: 36415 ×2; 82962 ×2; 85027; 85610; 85730; 80048; 88305 ×2; 88311; 73560; 94799; 97530; 97110 ×2; 97116 ×2; 97162; 97165; 27447; C1776 ×3; C1713 ×3; A9270 ×19; J2250; J0690; J3490 ×10; J0171; J3010; J2270; J2370; J2405; J7060; J7050; J2704; J3370; J0131; C9290; J1741; G8978; G8979; G8987; G8988; G8989; 01402